=== PATIENT | female | born 1960 | race Asian ===

== ENCOUNTER 2017-06-09 16:00 | Emergency (ER) | payer BC ==
[2017-06-09] MEDS ORDERED: Ondansetron ODT 4 MG TAB ONE (16:10)
[2017-06-09 16:31] LABS: #Lymphocytes 0.4 thou/uL (1.20-3.40); #Monocytes 0.4 thou/uL (0.11-0.59); #Neutrophils 7.6 thou/uL (1.40-6.50); %Eosinophils 0.2 % (0.0-10.0); %Lymphocytes 4.5 % (21.0-51.0); %Monocytes 5.2 % (0.0-10.0); Mean Platelet Volume 6.9 fL (7.4-10.4); Red Blood Cell (RBC) Count 4.43 mill/uL (4.20-5.40); White Blood Cell (WBC) Count 8.4 thou/uL (4.8-10.8)
[2017-06-09 16:51] LABS: ALT (SGPT) 18 U/L (8-55); AST (SGOT) 19 U/L (5-34); Alkaline Phosphatase 73 U/L (40-150); Anion Gap 12 mmol/L (10-20); BUN (Urea Nitrogen) 13 mg/dL (9.8-20.1); Bilirubin, Total 0.6 mg/dL (0.2-1.2); Calc. Creatinine Clearance 0 mL/min (70-130); Calcium 8.7 mg/dL (7.8-10.44); Carbon Dioxide 26 mmol/L (22-29); Chloride 98 mmol/L (98-107); Estimated GFR-MDRD 82; Globulin 3.7 g/dL (2.4-3.5); Lipase 8 U/L (8-78); Protein, Total 7.6 g/dL (6.0-8.3)
[2017-06-09 17:53] LABS: Troponin I Less than 0.010 ng/mL (< 0.028)
[2017-06-09] MEDS ORDERED: Acetaminophen 325 MG TAB ONE (18:23)
--- NOTE | 2017-06-09 18:35 | RAD ---
UPRIGHT PORTABLE CHEST ONE VIEW: History: 57-year-old female with chest pain and vomiting for 30 minutes. FINDINGS: Heart size is within normal limits. The lungs are clear. No evidence of acute process. No confluent p neumonia or overt edema or pleural effusion. IMPRESSION: Stable appearing chest. No acute intrathoracic disease. POS: [facility]
[2017-06-09] MEDS ORDERED: Oseltamivir 75 MG CAP PO SCH (19:00)
== END 2017-06-09 19:14 | disposition home or self-care (01) ==
LOC: ERS 16:00
DX: J11.1 Influenza due to unidentified influenza virus with other respiratory manifestations (principal); I10 Essential (primary) hypertension
CPT/HCPCS: 36415; 71010; 80053; 82553; 83690; 84484; 85025; 93005; Q0162